=== PATIENT | female | born 1955 | race Caucasian/White ===

== ENCOUNTER 2017-12-27 20:18 | Inpatient (IN) | payer OTHER ==
[2017-12-27] MEDS: CEFEPIME 2GM/50 ML (PMX) 50 ML IVPB (21:42)
[2017-12-27] MEDS: ACETAMINOPHEN 325 MG TAB PO (21:42)
[2017-12-27] MEDS: VANCOMYCIN 1 GM (PMX) 250 ML IVPB (21:43)
[2017-12-27] MEDS: SODIUM CHLORIDE 0.9% 1L BAG IV* (21:43)
[2017-12-27 21:47] LABS: ADD MAN DIFF? NO
[2017-12-27 21:53] LABS: BASOPHILS % 0.2 % (0.0-2.0); EOSINOPHILS % 0.3 % (0.0-7.0); HEMATOCRIT 29.5 % (37.0-47.0); LYMPHOCYTES % 11.1 % (15.0-51.0); MEAN CORPUSCULAR HEMOGLOBIN 25.1 pg (29.0-33.0); MEAN CORPUSCULAR HGB CONC 30.5 g/dl (32.0-37.0); MEAN CORPUSCULAR VOLUME 82.2 fl (82.0-101.0); MEAN PLATELET VOLUME 11.5 fl (7.4-10.4); MONOCYTE # 0.8 10^3/ul (0.3-0.9); MONOCYTES % 8.6 % (0.0-11.0); NEUTROPHIL # 7.3 10^3/ul (1.6-7.5); NEUTROPHILS % 79.1 % (39.0-77.0); PLATELET COUNT 205 10^3/UL (140-415); RED BLOOD COUNT 3.59 10^6/ul (4.20-5.40); RED CELL DISTRIBUTION WIDTH 15.3 % (11.5-14.5)
[2017-12-27 21:53] LABS: WHITE BLOOD COUNT 9.2 10^3/ul (4.8-10.8)
[2017-12-27 22:20] LABS: LACTIC ACID 1.4 mmol/L (0.5-2.0)
[2017-12-27 22:23] LABS: ALANINE AMINOTRANSFERASE 33 IU/L (13-69); ALBUMIN 3.7 g/dl (3.3-4.9); ALBUMIN/GLOBULIN RATIO 1.23; ALKALINE PHOSPHATASE 76 IU/L (42-121); ANION GAP 16 (8-16); ASPARTATE AMINO TRANSFERASE 19 IU/L (15-46); BILIRUBIN,INDIRECT 0.3 mg/dl (0-1.1); BILIRUBIN,TOTAL 0.3 mg/dl (0.2-1.3); BLOOD UREA NITROGEN 19 mg/dl (7-20); CARBON DIOXIDE 31 mmol/L (21-31); CHLORIDE 97 mmol/L (97-110); CREATININE 0.76 mg/dl (0.44-1.00); GLUCOSE 207 mg/dl (70-220); POTASSIUM 4.9 mmol/L (3.5-5.1); SODIUM 139 mmol/L (135-144); TOTAL PROTEIN 6.7 g/dl (6.1-8.1)
[2017-12-27 22:24] LABS: INR 1.15; PROTIME 14.9 Sec (11.9-14.9); PT RATIO 1.2
[2017-12-27 22:25] LABS: PARTIAL THROMBOPLASTIN TIME 35.4 Sec (25.0-35.0)
[2017-12-27 22:35] LABS: TROPONIN-I 0.362 ng/ml (0.00-0.12)
[2017-12-27] MEDS: ASPIRIN 81 MG TAB PO (22:45)
[2017-12-27] MEDS ORDERED: HYDROCODONE/APAP (5/325) TAB PO (23:00)
[2017-12-27] MEDS ORDERED: BISACODYL (EC) 5 MG TAB PO (23:00)
[2017-12-27] MEDS ORDERED: DEXTROSE 50% 50 ML SYRINGE IV ×2 (23:00)
[2017-12-27] MEDS ORDERED: ALBUTEROL/IPRATROPIUM (NEB) 3 ML AMP NEB (23:00)
[2017-12-27] MEDS ORDERED: GLUCAGON 1 MG INJ IM (23:00)
[2017-12-27] MEDS ORDERED: LORAZEPAM 0.5 MG TAB PO (23:00)
[2017-12-27] MEDS ORDERED: GLUCOSE GEL 15 GRAM TUBE BUCCAL (23:00)
[2017-12-27] MEDS ORDERED: DOCUSATE SODIUM 100 MG CAP PO (23:00)
[2017-12-27] MEDS ORDERED: GLUCOSE GEL 15 GRAM TUBE PO ×2 (23:00)
[2017-12-27] MEDS ORDERED: ACETAMINOPHEN 325 MG TAB PO (23:00)
[2017-12-27] MEDS: SOD CHLORIDE 0.45% 1,000 ML IV (23:00)
[2017-12-27] MEDS ORDERED: ONDANSETRON 4 MG INJ IV (23:00)
[2017-12-27 23:02] LABS: ADD UMIC YES; UR ASCORBIC ACID NEGATIVE (NEGATIVE); UR BILIRUBIN (Dip) NEGATIVE (NEGATIVE); UR BLOOD (Dip) 1+ mg/dL (NEGATIVE); UR CLARITY CLEAR (CLEAR); UR COLOR STRAW (YELLOW); UR GLUCOSE (Dip) 1+ mg/dL (NEGATIVE); UR KETONES (Dip) NEGATIVE (NEGATIVE); UR LEUKOCYTE ESTERASE (Dip) 1+ Leu/ul (NEGATIVE); UR NITRITE (Dip) NEGATIVE (NEGATIVE); UR RBC 2 /HPF (0-5); UR SPECIFIC GRAVITY (Dip) 1.008 (1.003-1.030); UR TOTAL PROTEIN (Dip) 2+ mg/dl (NEGATIVE); UR UROBILINOGEN (Dip) NEGATIVE (NEGATIVE); UR WBC 8 /HPF (0-5)
[2017-12-27 23:06] LABS: HEMOGLOBIN A1C 8.2 % (0-5.9)
[2017-12-27] MEDS: morphine 2 MG INJ IV (23:13)
[2017-12-27] MEDS: AZITHROMYCIN 500MG/NS (PMX) 250 ML IV (23:14)
[2017-12-27] MEDS: ALBUTEROL/IPRATROPIUM (NEB) 3 ML AMP NEB (23:46)
[2017-12-28 00:33] LABS: LACTIC ACID 1.2 mmol/L (0.5-2.0)
[2017-12-28] MEDS: CEFTRIAXONE 1 GM/50 ML (PMX) 50 ML IVPB ×2 (00:46→23:22)
[2017-12-28 01:36] LABS: CREATINE KINASE 103 IU/L (23-200)
[2017-12-28 01:49] LABS: CK INDEX 1.8; CK-MB 1.82 ng/ml (0.0-2.4)
[2017-12-28 01:52] LABS: TROPONIN-I 0.345 ng/ml (0.00-0.12)
[2017-12-28] MEDS: ACCU-CHEK XX (02:35)
[2017-12-28 04:15] LABS: LACTIC ACID 0.7 mmol/L (0.5-2.0)
[2017-12-28] MEDS: ALBUTEROL/IPRATROPIUM (NEB) 3 ML AMP NEB ×5 (04:23→20:37)
[2017-12-28] MEDS: LEVOTHYROXINE 100 MCG TAB PO (06:02)
[2017-12-28] MEDS: SOD CHLORIDE 0.45% 1,000 ML IV ×2 (07:20→18:51)
[2017-12-28] MEDS: ACETAMINOPHEN 325 MG TAB PO ×2 (07:28→20:48)
[2017-12-28 07:42] LABS: ADD MAN DIFF? NO
[2017-12-28 07:54] LABS: BASOPHILS % 0.3 % (0.0-2.0); EOSINOPHILS # 0.1 10^3/ul (0.0-0.5); EOSINOPHILS % 0.9 % (0.0-7.0); HEMATOCRIT 27.2 % (37.0-47.0); HEMOGLOBIN 8.4 g/dl (12.0-16.0); LYMPHOCYTES # 1.8 10^3/ul (0.8-2.9); LYMPHOCYTES % 25.9 % (15.0-51.0); MEAN CORPUSCULAR HEMOGLOBIN 25.8 pg (29.0-33.0); MEAN CORPUSCULAR HGB CONC 30.9 g/dl (32.0-37.0); MEAN CORPUSCULAR VOLUME 83.7 fl (82.0-101.0); MEAN PLATELET VOLUME 11.7 fl (7.4-10.4); MONOCYTES % 13.8 % (0.0-11.0); NEUTROPHIL # 4.1 10^3/ul (1.6-7.5); NEUTROPHILS % 58.8 % (39.0-77.0); PLATELET COUNT 183 10^3/UL (140-415); RED BLOOD COUNT 3.25 10^6/ul (4.20-5.40); RED CELL DISTRIBUTION WIDTH 15.6 % (11.5-14.5)
[2017-12-28 07:54] LABS: WHITE BLOOD COUNT 6.9 10^3/ul (4.8-10.8)
[2017-12-28 08:06] LABS: CREATINE KINASE 104 IU/L (23-200)
[2017-12-28 08:13] LABS: ALANINE AMINOTRANSFERASE 30 IU/L (13-69); ALBUMIN/GLOBULIN RATIO 0.96; ALKALINE PHOSPHATASE 70 IU/L (42-121); ANION GAP 14 (8-16); ASPARTATE AMINO TRANSFERASE 25 IU/L (15-46); BILIRUBIN,INDIRECT 0.3 mg/dl (0-1.1); BILIRUBIN,TOTAL 0.3 mg/dl (0.2-1.3); BLOOD UREA NITROGEN 17 mg/dl (7-20); CALCIUM 7.3 mg/dl (8.4-10.2); CARBON DIOXIDE 28 mmol/L (21-31); CHLORIDE 103 mmol/L (97-110); CREATININE 0.87 mg/dl (0.44-1.00); GLUCOSE 133 mg/dl (70-220); MAGNESIUM 1.7 mg/dl (1.7-2.5); POTASSIUM 4.2 mmol/L (3.5-5.1); SODIUM 141 mmol/L (135-144); TOTAL PROTEIN 6.1 g/dl (6.1-8.1)
[2017-12-28 08:19] LABS: CK INDEX 1.9; CK-MB 1.96 ng/ml (0.0-2.4)
[2017-12-28 08:21] LABS: TROPONIN-I 0.158 ng/ml (0.00-0.12)
[2017-12-28] MEDS: INSULIN ASPART [NOVOLOG] 3 ML PEN SC ×3 (08:37→17:17)
[2017-12-28] MEDS: INSULIN GLARGINE [LANtus] 3 ML PEN SC (08:37)
[2017-12-28] MEDS: FAMOTIDINE 20 MG TAB PO ×2 (08:38→20:49)
[2017-12-28] MEDS: OSELTAMIVIR 75 MG CAP PO (08:38)
[2017-12-28] MEDS: LIOTHYRONINE 5 MCG TAB PO ×2 (08:38→20:50)
[2017-12-28] MEDS: GABAPENTIN 300 MG CAP PO ×2 (08:38→20:49)
[2017-12-28] MEDS: OLMESARTAN HYDROCHLOROTHIAZIDE XX (09:00)
[2017-12-28] MEDS ORDERED: INSULIN LISPRO 26 UNIT SC (09:00)
[2017-12-28] MEDS: [UNRECOGNIZED DRUG - REMARK] XX (09:30)
[2017-12-28] MEDS: ASPIRIN (EC) 81 MG TAB PO (12:53)
[2017-12-28] MEDS: GUAIFENESIN LA 600 MG TABSR PO ×2 (12:54→20:49)
[2017-12-28] MEDS: LISINOPRIL 5 MG TAB PO (12:54)
[2017-12-28] MEDS: CLOPIDOGREL 75 MG TAB PO (12:54)
[2017-12-28] MEDS: SERTRALINE 50 MG TAB PO (14:45)
[2017-12-28] MEDS: ATORVASTATIN 40 MG TAB PO (20:38)
[2017-12-28] MEDS: AZITHROMYCIN 500MG/NS (PMX) 250 ML IV (23:22)
[2017-12-28] MEDS: morphine 2 MG INJ IV (23:23)
[2017-12-29] MEDS: ALBUTEROL/IPRATROPIUM (NEB) 3 ML AMP NEB ×6 (01:21→20:10)
[2017-12-29] MEDS: ACCU-CHEK XX (01:36)
[2017-12-29] MEDS ORDERED: POTASSIUM CHLORIDE 50 ML IVPB (02:30)
[2017-12-29] MEDS: FUROSEMIDE 40 MG INJ IV ×2 (02:30→08:35)
[2017-12-29] MEDS: LEVOTHYROXINE 100 MCG TAB PO (06:28)
[2017-12-29] MEDS: CLOPIDOGREL 75 MG TAB PO (08:34)
[2017-12-29] MEDS: ASPIRIN (EC) 81 MG TAB PO (08:34)
[2017-12-29] MEDS: FAMOTIDINE 20 MG TAB PO ×2 (08:34→21:04)
[2017-12-29] MEDS: GUAIFENESIN LA 600 MG TABSR PO ×2 (08:34→21:04)
[2017-12-29] MEDS: GABAPENTIN 300 MG CAP PO ×2 (08:34→21:04)
[2017-12-29] MEDS: LISINOPRIL 5 MG TAB PO (08:34)
[2017-12-29] MEDS: LIOTHYRONINE 5 MCG TAB PO ×2 (08:35→22:25)
[2017-12-29] MEDS: SERTRALINE 50 MG TAB PO (08:35)
[2017-12-29] MEDS: ONDANSETRON 4 MG INJ IV (08:35)
[2017-12-29] MEDS: INSULIN ASPART [NOVOLOG] 3 ML PEN SC ×3 (08:37→17:48)
[2017-12-29] MEDS: INSULIN GLARGINE [LANtus] 3 ML PEN SC (08:37)
[2017-12-29 08:41] LABS: ALANINE AMINOTRANSFERASE 28 IU/L (13-69); ALBUMIN 3.4 g/dl (3.3-4.9); ALBUMIN/GLOBULIN RATIO 1.03; ALKALINE PHOSPHATASE 65 IU/L (42-121); ANION GAP 15 (8-16); ASPARTATE AMINO TRANSFERASE 21 IU/L (15-46); BILIRUBIN,INDIRECT 0.1 mg/dl (0-1.1); BILIRUBIN,TOTAL 0.1 mg/dl (0.2-1.3); BLOOD UREA NITROGEN 24 mg/dl (7-20); CALCIUM 7.6 mg/dl (8.4-10.2); CARBON DIOXIDE 28 mmol/L (21-31); CHLORIDE 103 mmol/L (97-110); CREATININE 1.05 mg/dl (0.44-1.00); GLUCOSE 112 mg/dl (70-220); MAGNESIUM 1.8 mg/dl (1.7-2.5); POTASSIUM 4.2 mmol/L (3.5-5.1); SODIUM 142 mmol/L (135-144); TOTAL PROTEIN 6.7 g/dl (6.1-8.1)
[2017-12-29] MEDS: predniSONE 20 MG TAB PO (12:41)
[2017-12-29] MEDS: ATORVASTATIN 40 MG TAB PO (21:04)
[2017-12-29] MEDS: AZITHROMYCIN 500MG/NS (PMX) 250 ML IV (23:31)
[2017-12-29] MEDS: CEFTRIAXONE 1 GM/50 ML (PMX) 50 ML IVPB (23:31)
[2017-12-30] MEDS: ALBUTEROL/IPRATROPIUM (NEB) 3 ML AMP NEB ×4 (00:22→12:54)
[2017-12-30] MEDS: ACCU-CHEK XX (02:41)
[2017-12-30] MEDS: ZOLPIDEM 5 MG TAB PO (02:43)
[2017-12-30] MEDS: LEVOTHYROXINE 100 MCG TAB PO (06:11)
[2017-12-30] MEDS: LISINOPRIL 5 MG TAB PO (08:52)
[2017-12-30] MEDS: predniSONE 20 MG TAB PO (08:53)
[2017-12-30] MEDS: ASPIRIN (EC) 81 MG TAB PO (08:53)
[2017-12-30] MEDS: CLOPIDOGREL 75 MG TAB PO (08:53)
[2017-12-30] MEDS: GUAIFENESIN LA 600 MG TABSR PO (08:53)
[2017-12-30] MEDS: SERTRALINE 50 MG TAB PO (08:54)
[2017-12-30] MEDS: LIOTHYRONINE 5 MCG TAB PO (08:55)
[2017-12-30] MEDS: GABAPENTIN 300 MG CAP PO (08:55)
[2017-12-30] MEDS: FAMOTIDINE 20 MG TAB PO (08:55)
[2017-12-30] MEDS: INSULIN GLARGINE [LANtus] 3 ML PEN SC (08:57)
[2017-12-30] MEDS: INSULIN ASPART [NOVOLOG] 3 ML PEN SC ×2 (08:58→12:34)
[2017-12-30] MEDS ORDERED: ALBUTEROL HFA 8 GM INHALER INH (11:00)
== END 2017-12-30 14:47 | disposition home health service (06) | DRG 193 ==
LOC: MS4 22:38 → E/R 20:18
DX: J18.9 Pneumonia, unspecified organism (principal); I21.4 Non-ST elevation (NSTEMI) myocardial infarction; J96.01 Acute respiratory failure with hypoxia; Z68.41 Body mass index [BMI] 40.0-44.9, adult; E66.9 Obesity, unspecified; I25.10 Atherosclerotic heart disease of native coronary artery without angina pectoris; Y95 Nosocomial condition; E11.319 Type 2 diabetes mellitus with unspecified diabetic retinopathy without macular edema; E11.21 Type 2 diabetes mellitus with diabetic nephropathy; E11.40 Type 2 diabetes mellitus with diabetic neuropathy, unspecified; E78.5 Hyperlipidemia, unspecified; I10 Essential (primary) hypertension; E03.9 Hypothyroidism, unspecified; Z79.4 Long term (current) use of insulin; Z79.82 Long term (current) use of aspirin; Z79.02 Long term (current) use of antithrombotics/antiplatelets; Z95.5 Presence of coronary angioplasty implant and graft
CPT/HCPCS: 36415; 71045; 80053; 81001; 82550; 82553; 82962; 83036; 83605; 83735; 84484; 85025; 85610; 85730; 87040; 87086; 87400; 93005; 94640; 94664; 96374; 96375; 97116; 97161; 97530; 99291-25

== ENCOUNTER 2018-04-23 16:39 | Emergency (ER) | payer OTHER ==
[2018-04-23] MEDS: ONDANSETRON 4 MG INJ IV (18:14)
[2018-04-23] MEDS: morphine 4 MG/ML VIAL IV (18:14)
[2018-04-23 18:18] LABS: ADD MAN DIFF? NO
[2018-04-23 18:29] LABS: BASOPHILS % 0.3 % (0.0-2.0); EOSINOPHILS % 0.3 % (0.0-7.0); HEMATOCRIT 39.8 % (37.0-47.0); HEMOGLOBIN 12.3 g/dl (12.0-16.0); MEAN CORPUSCULAR HEMOGLOBIN 25.5 pg (29.0-33.0); MEAN CORPUSCULAR HGB CONC 30.9 g/dl (32.0-37.0); MEAN CORPUSCULAR VOLUME 82.4 fl (82.0-101.0); MEAN PLATELET VOLUME 12.5 fl (7.4-10.4); MONOCYTES % 7.1 % (0.0-11.0); NEUTROPHIL # 8.6 10^3/ul (1.6-7.5); PLATELET COUNT 260 10^3/UL (140-415); RED BLOOD COUNT 4.83 10^6/ul (4.20-5.40)
[2018-04-23 18:29] LABS: WHITE BLOOD COUNT 13.6 10^3/ul (4.8-10.8)
[2018-04-23] MEDS: METOCLOPRAMIDE 10 MG INJ IV (18:50)
[2018-04-23 18:54] LABS: ALANINE AMINOTRANSFERASE 32 IU/L (13-69); ALBUMIN 4.4 g/dl (3.3-4.9); ALBUMIN/GLOBULIN RATIO 1.15; ALKALINE PHOSPHATASE 91 IU/L (42-121); ANION GAP 15 (8-16); ASPARTATE AMINO TRANSFERASE 31 IU/L (15-46); BILIRUBIN,INDIRECT 0.8 mg/dl (0-1.1); BILIRUBIN,TOTAL 0.8 mg/dl (0.2-1.3); BLOOD UREA NITROGEN 36 mg/dl (7-20); CALCIUM 11.3 mg/dl (8.4-10.2); CARBON DIOXIDE 32 mmol/L (21-31); CHLORIDE 98 mmol/L (97-110); CREATININE 1.21 mg/dl (0.44-1.00); GLUCOSE 143 mg/dl (70-220); LIPASE 434 U/L (23-300); POTASSIUM 4.1 mmol/L (3.5-5.1); SODIUM 141 mmol/L (135-144); TOTAL PROTEIN 8.2 g/dl (6.1-8.1)
[2018-04-23] MEDS: HYDROmorphONE 0.5 MG/0.5 ML SYG IV (19:07)
[2018-04-23] MEDS: LABETALOL HCL 20MG INJ IV (20:30)
[2018-04-23 20:55] LABS: URINE PH (Dip) POC 8.5 (5.0-8.5)
[2018-04-23 20:55] LABS: URINE BLOOD (Dip) POC Trace-intact (NEGATIVE); URINE KETONES (Dip) POC 2+ (NEGATIVE); URINE LEUKOCYTE EST (Dip) POC 1+ (NEGATIVE); URINE NITRITE (Dip) POC Negative (NEGATIVE); URINE TOTAL PROTEIN POC 3+ (NEGATIVE)
[2018-04-23] MEDS ORDERED: LABETALOL HCL 20MG INJ IV (21:00)
[2018-04-23] MEDS: HALOPERIDOL 5 MG INJ IV (21:12)
== END 2018-04-23 21:17 | disposition home or self-care (01) ==
LOC: E/R 21:17
DX: E86.0 Dehydration (principal); R19.7 Diarrhea, unspecified; I10 Essential (primary) hypertension; E83.52 Hypercalcemia; I25.10 Atherosclerotic heart disease of native coronary artery without angina pectoris; E03.9 Hypothyroidism, unspecified; E11.9 Type 2 diabetes mellitus without complications; Z98.61 Coronary angioplasty status; Z79.4 Long term (current) use of insulin; Z79.82 Long term (current) use of aspirin; Z79.01 Long term (current) use of anticoagulants
CPT/HCPCS: 36415; 74176; 80053; 81003; 82962; 83690; 85025; 96374; 96375; 99285-25